=== PATIENT | male | born 2000 | race Caucasian/White ===

== ENCOUNTER 2019-10-06 14:43 | Emergency (ER) | payer MEDICAID, SELFPAY ==
[2019-10-06 14:48] VITALS: BP 140/69; PULSE 86; RESP 16; TEMP 37.1; O2SAT 100
--- NOTE | 2019-10-06 15:10 | W.ED.GENAD ---
Discharge Plan Disposition Patient Disposition: HOME Condition: Improving Discharge Details Chief Complaint: EyeProblem Clinical Impression: Foreign body in cornea, left eye, initial encounter Primary Care Provider: None,None ED Provider: Zander Vital Home Meds and New Rx's Prescriptions: No Action No Known Home Meds RF: 0 Discharge Instructions Instructions: Corneal Abrasion (ED) Additional Instructions: Please use erythromycin ointment 4 times daily for 4 to [address] a 1/4 inch strip in the lower lid as we discussed. Return if you develop increasing pain, change to vision, or any other acute concern. May use Tylenol or ibuprofen as needed for pain. Cool compress to ease discomfort as well as use of sunglasses. Medical Decision Making 19-year-old male presents with left eye foreign body sensation after feeling a small piece of metal enter the eye despite the use of safety glasses while grinding on aluminum. No other injury. He is otherwise been well. Foreign body visualized on slit-lamp examination. Dario sign was negative. The foreign body was removed without difficulty. I will place the patient on erythromycin ointment for 4 to 5 days time. He understands homecare, indications to return, expected course of resolution. HPI General Mode of arrival: ambulatory. Date/Time Provider Initiated Documentation: 10/06/19 14:45. Limitations to Documentation: no limitations. Information obtained by: patient. History of Present Illness 19 year old M presents to the emergency department with the chief complaint of Left eye foreign body, described as moderate, Quality is described as dull and constant, and is localized to the eyes and left. Patient reports no radiation. Patient started experiencing this minute(s) and it has been constant. No relieving factors improve symptom(s), No exacerbating factors reported . Patient notes no other symptoms.. Patient did receive the following treatments prior to arrival, other (Irrigated) Related Data Home Medications Medication Instructions Recorded Confirmed Unknown [No Known Home Meds] 06/21/18 10/06/19 Allergies Allergy/AdvReac Type Severity Reaction Status Date / Time No Known Allergies Allergy Verified 10/06/19 14:51 General Stated Complaint: EyeProblem DELFIN: 5 Review of Systems Narrative: No other injury. Denies other illness. [facility] Medical History Fractured tibia LEFT Surgical History (Updated 02/10/16 @ 12:16 by Henri Page MD) Circumcision Fracture, Closed Treatment Family History Mother No problems noted. Father No problems noted. Social History Smoking/Tobacco Use Status: Never Drug use: Never Exam Narrative Exam Narrative: GEN: awake, alert, oriented 3. Pleasant, well groomed, interactive. HEAD: Normocephalic, atraumatic ENT: Mucous membranes moist, oropharynx unremarkable, External ear exam unremarkable EYES: PERRL, EOMI, the left eye has a punctate foreign body on the nasal aspect medial to the axis of vision and loss along the outer radius of the iris. There is no evidence of Dario sign. NECK: Full ROM, no ROVERTO, no menigismus EXT: Full ROM, no edema, no rash Neuro: Grossly normal neurologic exam, conversant, interactive. Psych: Speech fluent, thoughts congruent, affect normal Course Vital Signs Vital signs: Vital Signs Temperature 37.1 C 10/06/19 14:48 Pulse 86 10/06/19 14:48 Respiratory Rate 16 10/06/19 14:48 Blood Pressure 140/69 10/06/19 14:48 Pulse Oximetry 100 10/06/19 14:48 Temperature 37.1 C 10/06/19 14:48 Temperature Source Skin 10/06/19 14:48 Pulse 86 10/06/19 14:48 Respiratory Rate 16 10/06/19 14:48 Blood Pressure 140/69 10/06/19 14:48 Blood Pressure Position Sitting 10/06/19 14:48 Pulse Oximetry 100 10/06/19 14:48 Oxygen Delivery Method Room Air 10/06/19 14:48 Oxygen Flow Rate 0 10/06/19 14:48 Pain Level 0 10/06/19 14:48 Procedures FB Removal Eye Time Out performed: Yes Location: eye (R) Topical anesthetic used: tetracaine Foreign body: metal Evidence of corneal penetration: No Technique: cotton tip swab and needle Procedure performed under: slit-lamp Post-procedure medication: ophthalmic antibiotic Patient tolerated procedure: well
[2019-10-06] MEDS: Balanced Salt Solution 15 ML BTL OP (15:14)
[2019-10-06] MEDS: Erythromycin Ophth Oint 3.5 GM TUBE OP (15:15)
[2019-10-06] MEDS: Tetracaine 0.5% 4 ML BTL OP (15:15)
[2019-10-06] MEDS: Fluorescein STRIPS 100/BOX 1 MG OP (15:15)
== END 2019-10-06 15:20 | disposition home or self-care (01) ==
PROVIDERS: Emergency Provider Emergency Medicine
DX: T15.02XA Foreign body in cornea, left eye, initial encounter (principal); W26.8XXA Contact with other sharp object(s), not elsewhere classified, initial encounter
CPT/HCPCS: 65222

== ENCOUNTER 2022-02-23 17:01 | Emergency (ER) | payer MEDICAID, SELFPAY ==
[2022-02-23 17:04] VITALS: BP 137/72; PULSE 62; RESP 16; TEMP 36.9; O2SAT 99
--- NOTE | 2022-02-23 17:30 | DI.RAD_ITS ---
Exam(s) XR SHOULDER RT COMPLETE 2+V EXAM: XR SHOULDER RT COMPLETE 2+V CLINICAL HISTORY: shoulder pain. TECHNIQUE: 2D digital imaging was performed. COMPARISON: No exams were available for comparison FINDINGS: Four views: No evidence of fracture or dislocation. No soft tissue calcifications. No degenerative changes. Gl enohumeral and AC joints are intact. No clavicle fracture. No degenerative changes. Bone density n ormal. IMPRESSION: No significant findings. DATA REPOSITORY: RADIATION DOSE DELIVERED:
--- NOTE | 2022-02-23 18:16 | DI.VRAD_ITS ---
PROCEDURE INFORMATION: Exam: XR Right Shoulder Exam date and time: 02/23/2022 5:56 PM Age: 21 years old Clinical indication: Right; Patient HX: Shoulder pain TECHNIQUE: Imaging protocol: Radiologic exam of the Right shoulder. Views: 2 or more views. COMPARISON: No relevant prior studies available. FINDINGS: Bones/joints: No acute fracture or dislocation. Minimal degenerative changes at the acromioclavicular joint Soft tissues: Normal. IMPRESSION: No acute findings. Dictated and Authenticated by: Jens Oneill MD. Ordering:DEWAYNE Guerra MD
--- NOTE | 2022-02-23 18:32 | ED.GENADUL_ITS ---
Discharge Plan Disposition Patient Disposition: HOME Condition: Stable Discharge Details Clinical Impression: Sprain of right shoulder Primary Care Provider: None,None ED Provider: Charlie Cobb Home Meds and New Rx's Prescriptions: No Action No Known Home Meds Discharge Instructions Instructions: Shoulder Sprain (ED), Shoulder Pain (ED) Additional Instructions: You may continue to use [id number] ibuprofen or acetaminophen as directed on packaging for pain control. As discussed please perform gentle range of motion activities of your right shoulder 3-4 times daily. You may also apply ice to help with any further swelling. You may return to work but for 1 week please do not use your right upper extremity and allow for extra rest. For any new or significant worsening of symptoms return to the emergency department for reassessment. Stand Alone Forms: Work Release Referrals: [facility] [Provider Group] (Call their office tomorrow morning for arrangement of your follow-up appointment) Discharge Data Discharge Date/Time-TO BE ENTERED AT DEPARTURE: 02/23/22 18:50 Medical Decision Making Patient presenting the emergency department for chief complaint of right shoulder injury. 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 He does state that when he attempts to raise his arm overhead he feels popping and clicking. Patient denies any other injury or trauma. Physical exam shows tenderness to the anterior aspects of the shoulder capsule with significant pain after patient attempts to go any higher than 90 degrees mainly in the forward and lateral extension positions. We will perform radiological imaging and give pain medication pending results. Review of radiological imaging and radiologist interpretation shows no acute findings. I do suspect ligamentous injury with possible tear. Will place patient in sling and recommend ice and range of motion activities over the next week and put patient on follow-up list for orthopedic reassessment. After discussion of diagnosis and plan of care patient has no further needs, questions, or concerns and states clear understanding to return to the emergency department for any worsening symptoms. HPI General Mode of arrival: ambulatory . Date/Time Provider Initiated Documentation: 02/23/22 17:21 . Limitations to Documentation: no limitations . Information obtained by: patient and RN notes reviewed . History of Present Illness 21 year old M presents to the emergency department with the chief complaint of right shoulder injury, described as moderate, with intensity rated at 7. Quality is described as sharp, and is localized to the right and upper extremity. Patient distal. Patient started experiencing this hour(s) (2) and it has been constant. Immobilization improves symptom(s), Movement worsens symptoms . Patient notes no other symptoms.. Patient did receive the following treatments prior to arrival, none Related Data Home Medications Medication Instructions Recorded Confirmed Unknown [No Known Home Meds] 06/21/18 02/23/22 Allergies Allergy/AdvReac Type Severity Reaction Status Date / Time No Known Allergies Allergy Verified 02/23/22 17:08 General Stated Complaint: Orthopedic DELFIN: 4 Review of Systems Narrative: 6 systems reviewed and unremarkable except what is marked below. ENT Ears, Nose, Mouth, and Throat: Denies neck pain Musculoskeletal Musculoskeletal: Reports as per HPI, Denies back pain, Reports arthralgias, Reports limited range of motion, Denies muscle weakness, Denies neck pain, Denies numbness and Denies tingling Neurologic Neurologic: Denies numbness and Denies tingling PFSH All Active Problems (Updated 02/23/22 @ 18:37 by Charlie Cobb NP) Sprain of right shoulder (Acute) Medical History (Updated 02/23/22 @ 18:37 by Charlie Cobb NP) Fractured tibia LEFT Surgical History (Updated 02/10/16 @ 12:16 by Henri Page MD) Circumcision Fracture, Closed Treatment Family History Mother No problems noted. Father No problems noted. Social History Smoking/Tobacco Use Status: Current every day Tobacco Type: e-cigarettes Smoking risk assessment performed?: Yes Alcohol Intake: current Drug use: Never Substance use type: marijuana Do you feel safe at home: Yes Do you feel safe in your relationship?: Yes Exam Const General: cooperative, no acute distress and not ill appearing Orientation: alert, awake and oriented x3 Resp Effort & Inspection: normal respiratory effort, able to speak in complete sentences and no respiratory distress Cardio Rate: regular rate Rhythm: regular rhythm Pulses: normal peripheral pulses Skin General skin exam: no rashes or lesions noted Neuro General: patient alert, patient awake, patient oriented x3, moves all extremities and no focal motor deficits Sensory Exam: no sensory deficits noted Extrem General: normal exam except as noted Right upper extremity: shoulder/upper arm Details: tenderness Location: over the subacromial bursa and over the deltoid bursa, axillary nerve sensory function normal and abnormal ROM Details: pain with active ROM Details: in extension and in internal rotation, pain with passive ROM Details: with extension and with internal rotation and with range as follows; no swelling, no ecchymosis and no crepitus Course Vital Signs Vital signs: Vital Signs Temperature 36.9 C 02/23/22 17:04 Pulse 62 02/23/22 17:04 Respiratory Rate 16 02/23/22 17:04 Blood Pressure 137/72 02/23/22 17:04 Pulse Oximetry 99 02/23/22 17:04 Temperature 36.9 C 02/23/22 17:04 Pulse 62 02/23/22 17:04 Respiratory Rate 16 02/23/22 17:04 Respiratory Effort 02/23/22 17:08 Blood Pressure 137/72 02/23/22 17:04 Pulse Oximetry 99 02/23/22 17:04 Pain Level 4 02/23/22 17:08
[2022-02-23 18:47] VITALS: BP 137/72; PULSE 62; RESP 16; TEMP 36.9; O2SAT 99
== END 2022-02-23 18:50 | disposition home or self-care (01) ==
PROVIDERS: Emergency Provider Nurse Practitioner Family
DX: S43.401A Unspecified sprain of right shoulder joint, initial encounter (principal); F17.290 Nicotine dependence, other tobacco product, uncomplicated; X50.0XXA Overexertion from strenuous movement or load, initial encounter
CPT/HCPCS: 99283; 73030; 99284

== ENCOUNTER 2022-05-05 16:53 | Emergency (ER) | payer MEDICAID, SELFPAY ==
[2022-05-05 16:56] VITALS: BP 132/61; PULSE 73; RESP 16; TEMP 36.8; O2SAT 98
[2022-05-05] MEDS: Fluorescein STRIPS 100/BOX 1 MG OP (17:08)
[2022-05-05] MEDS: Balanced Salt Solution 15 ML BTL OP (17:08)
[2022-05-05] MEDS: Erythromycin Ophth Oint 3.5 GM TUBE OP (17:09)
[2022-05-05] MEDS: Tetracaine 0.5% 4 ML BTL OP (17:10)
--- NOTE | 2022-05-05 18:32 | W.ED.GENAD ---
Discharge Plan Disposition Patient Disposition: Home Condition: Stable Discharge Details Clinical Impression: Acute foreign body of left eye Primary Care Provider: None,None ED Provider: Charlie Cobb Home Meds and New Rx's Prescriptions: No Action No Known Home Meds Discharge Instructions Instructions: Eye Foreign Body (ED) Additional Instructions: Please take the erythromycin ointment and use a half an inch applied to your left lower eyelid 4-5 times daily for the next 5 days or until you see ophthalmology with further recommendation. You may use [id number] Motrin or acetaminophen as needed for discomfort and return immediately to the emergency department for any new or worsening of your symptoms. Stand Alone Forms: Work Release Referrals: [facility] [Outside] - 2 days Discharge Data Discharge Date/Time-TO BE ENTERED AT DEPARTURE: 05/05/22 18:46 Medical Decision Making Patient presenting to the emergency department for chief complaint of foreign body in left eye. Patient states he was working underneath a car yesterday evening and was wearing safety glasses and denies any injury or trauma but later that evening noted some irritation to his left eye. Patient denies any other symptoms. Visual acuity is appropriate and exam is otherwise unremarkable except for an noted visible foreign body in the 5 o'clock position. Moistened Q-tip was utilized to remove part of foreign body but there does appear to either be remained a small aspect of metal still or rust ring. Patient is not able to keep still enough to try an 18-gauge needle. I will place patient on erythromycin ointment and have patient follow-up with ophthalmology on Tuesday. Did discuss with patient return and follow-up precautions for any new or worsening symptoms after discussion of diagnosis and plan of care patient has no further needs, questions, or concerns and states clear understanding to return to the emergency department for any worsening symptoms. This documentation was generated using Dayjetation system, please disregard any oddities of phrase or misspellings. Sign Out No HPI General Mode of arrival: ambulatory. Date/Time Provider Initiated Documentation: 05/05/22 17:02. Limitations to Documentation: no limitations. Information obtained by: patient and RN notes reviewed. History of Present Illness 22 year old M presents to the emergency department with the chief complaint of left eye injury, described as mild, with intensity rated at 1. Quality is described as aching, and is localized to the eyes and left. Patient started experiencing this day(s) (1) and it has been constant. No relieving factors improve symptom(s), No exacerbating factors reported . Patient notes no other symptoms.. Patient did receive the following treatments prior to arrival, none Related Data Home Medications Medication Instructions Recorded Confirmed Unknown [No Known Home Meds] 06/21/18 05/05/22 Allergies Allergy/AdvReac Type Severity Reaction Status Date / Time No Known Allergies Allergy Verified 05/05/22 16:59 General Stated Complaint: EyeProblem DELFIN: 4 Review of Systems Narrative: 6 systems reviewed and unremarkable except what is marked below. Eyes Eyes: Reports as per HPI, Denies change in vision, Reports irritation, Denies loss of vision, Reports eye pain and Reports photophobia Neurologic Neurologic: Denies loss of vision PFSH All Active Problems Acute foreign body of left eye (Acute) No-show for appointment (Acute) Strain of long head of right biceps (Acute 02/23/22) Medical History Fractured tibia LEFT Surgical History Circumcision Fracture, Closed Treatment Family History Mother No problems noted. Father No problems noted. Social History Smoking/Tobacco Use Status: Current every day Tobacco Type: e-cigarettes Smoking risk assessment performed?: Yes Alcohol Intake: current Drug use: Daily Substance use type: marijuana Current gender identity: male Do you feel safe at home: Yes Do you feel safe in your relationship?: Yes Exam Const General: cooperative, no acute distress and not ill appearing Orientation: alert, awake and oriented x3 HENMT Head: normal to inspection, normocephalic and atraumatic Eyes Visual Serrato: normal visual serrato by confrontation Alignment and Position: alignment normal and position normal Periorbital: periorbital findings normal Eyelids: eyelids normal Conjunctivae: conjunctivae normal Sclera: sclerae normal Cornea: corneas abnormal on the left fluorescein used and foreign body metallic and with rust ring present and fluorescein used Pupils: PERRL, normal by confrontation and accommodation normal EOM: EOM intact bilaterally Resp Effort & Inspection: normal respiratory effort, able to speak in complete sentences and no respiratory distress Skin General skin exam: no rashes or lesions noted Neuro General: patient alert, patient awake, patient oriented x3, moves all extremities and no focal motor deficits Sensory Exam: no sensory deficits noted Course Vital Signs Vital signs: Vital Signs Temperature 36.8 C 05/05/22 16:56 Pulse 73 05/05/22 16:56 Respiratory Rate 16 05/05/22 16:56 Blood Pressure 132/61 05/05/22 16:56 Pulse Oximetry 98 05/05/22 16:56 Temperature 36.8 C 05/05/22 16:56 Temperature Source Temporal Artery Scan 05/05/22 16:56 Pulse 73 05/05/22 16:56 Respiratory Rate 16 05/05/22 16:56 Respiratory Effort Non-Labored 05/05/22 16:58 Blood Pressure 132/61 05/05/22 16:56 Blood Pressure Position Sitting 05/05/22 16:56 Pulse Oximetry 98 05/05/22 16:56 Oxygen Delivery Method Room Air 05/05/22 16:56 Oxygen Flow Rate 0 05/05/22 16:56 Pain Level 1 05/05/22 16:56 PAWSS Have you Been Recently Intoxicated or Drunk Within the Last 30 days?: No Have you Ever Experienced Previous Episodes of Alcohol Withdrawal?: No Have you ever Experienced Withdrawal Seizures?: No Have you ever Experienced Delirium Tremens(DT)s?: No Have you ever undergone Alcohol Rehabilitation Treatment (i.e, inpt ot outpatient treatment programs)?: No Have you ever Experienced Blackouts?: No Have you ever Combined Alcohol with other Downers within the last 90 days?: No Result: 0
--- NOTE | 2022-05-06 09:34 | NUR.NOTE ---
Nursing Note REFFERAL TO [facility]. NEEDS TO BE SEEN TUESDAY:
== END 2022-05-05 18:46 | disposition home or self-care (01) ==
PROVIDERS: Emergency Provider Nurse Practitioner Family
DX: T15.92XA Foreign body on external eye, part unspecified, left eye, initial encounter (principal); F17.290 Nicotine dependence, other tobacco product, uncomplicated; X58.XXXA Exposure to other specified factors, initial encounter
CPT/HCPCS: 99283; 99284

== ENCOUNTER 2022-12-14 21:12 | Emergency (ER) | payer MEDICAID, SELFPAY ==
[2022-12-14 21:14] VITALS: BP 120/60; PULSE 70; RESP 16; TEMP 36.7; O2SAT 99
--- NOTE | 2022-12-14 23:17 | ED.GENADUL_ITS ---
Discharge Plan Disposition Patient Disposition: Home Condition: Stable Discharge Details Clinical Impression: Cerumen impaction Primary Care Provider: None,None ED Provider: Christiano Beckham Home Meds and New Rx's Prescriptions: No Action No Known Home Meds Discharge Instructions Additional Instructions: You can use over the counter ear drops to help prevent this from happening again follow up with your primary care provider as needed if you feel more ill, have severe worsening pain or fevers return to the emergency department Medical Decision Making 22 yo male with no chronic medical problems comes in with fullness sensation in his left ear today, no fevers, no drainage, denies trauma. Arrives stable and ap pears well, does have cerumen impaction on the left, normal right TM. Will have nursing irrigate the left ear. pt had large cerumen impacation irrigated out and has normal tm and ext aud canal, stable for d/c Differential Diagnosis Differential Diagnosis: impaction, otitis media HPI General Mode of arrival: ambulatory . Date/Time Provider Initiated Documentation: 12/14/22 21:20 . Limitations to Documentation: no limitations . Information obtained by: patient . History of Present Illness 22 year old M presents to the emergency department with the chief complaint of left ear fullness, described as moderate, Patient started experiencing this day(s) (1) and it has been constant. No relieving factors improve symptom(s), No exacerbating factors reported . Patient notes no other symptoms.. Related Data Home Medications Medication Instructions Recorded Confirmed Unknown [No Known Home Meds] 06/21/18 05/05/22 Allergies Allergy/AdvReac Type Severity Reaction Status Date / Time No Known Allergies Allergy Verified 05/05/22 16:59 General Stated Complaint: EarProblem DELFIN: 4 Review of Systems All systems reviewed & are unremarkable except as noted in HPI and below Constitutional Constitutional: Denies chills, Denies fever(s) and Denies weakness Cardiovascular Cardiovascular: Denies chest pain and Denies dyspnea Respiratory Respiratory: Denies cough and Denies dyspnea Gastrointestinal Gastrointestinal: Denies abdominal pain, Denies nausea and Denies vomiting Musculoskeletal Musculoskeletal: Denies joint swelling Neurologic Neurologic: Denies weakness PFSH All Active Problems (Updated 12/14/22 @ 23:19 by Christiano Beckham MD) Cerumen impaction (Acute) No-show for appointment (Acute) Strain of long head of right biceps (Acute 02/23/22) Medical History Fractured tibia LEFT Surgical History Circumcision Fracture, Closed Treatment Family History Mother No problems noted. Father No problems noted. Social History Smoking/Tobacco Use Status: Current every day Tobacco Type: e-cigarettes Smoking risk assessment performed?: Yes Alcohol Intake: current Drug use: Daily Substance use type: marijuana Housing: apartment Current gender identity: male Do you feel safe at home: Yes Do you feel safe in your relationship?: Yes Exam Const General: no acute distress Orientation: alert HENMT Head: normal to inspection Ears: external ears normal General nose exam: external nose normal Mouth: moist mucous membranes Eyes General: appearance normal, both eyes and all related structures Neck Neck: normal visual inspection Resp Effort & Inspection: normal respiratory effort and able to speak in complete sentences Cardio Rate: regular rate Skin General skin exam: no rashes or lesions noted Neuro General: patient alert and patient oriented x3 Extrem General: normal to inspection Psych Mental Status: mental status grossly normal Course Vital Signs Vital signs: Vital Signs Temperature 36.7 C 12/14/22 21:14 Pulse 70 12/14/22 21:14 Respiratory Rate 16 12/14/22 21:14 Blood Pressure 120/60 12/14/22 21:14 Pulse Oximetry 99 12/14/22 21:14 Temperature 36.7 C 12/14/22 21:14 Temperature Source Temporal Artery Scan 12/14/22 21:14 Pulse 70 12/14/22 21:14 Respiratory Rate 16 12/14/22 21:14 Respiratory Effort Normal, Non-Labored 12/14/22 21:16 Blood Pressure 120/60 12/14/22 21:14 Blood Pressure Position Sitting 12/14/22 21:14 Pulse Oximetry 99 12/14/22 21:14 Oxygen Delivery Method Room Air 12/14/22 21:14 Oxygen Flow Rate 0 12/14/22 21:14 Pain Level 0 12/14/22 21:14
[2022-12-14] MEDS: Hydrogen Peroxide 3% 480 ML BTL (23:20)
[2022-12-14 23:49] VITALS: BP 122/69; PULSE 72; RESP 16; O2SAT 99
== END 2022-12-14 23:49 | disposition home or self-care (01) ==
PROVIDERS: Emergency Provider Emergency Medicine
DX: H61.22 Impacted cerumen, left ear (principal); F17.290 Nicotine dependence, other tobacco product, uncomplicated
CPT/HCPCS: 69209; 99282

== ENCOUNTER 2023-01-23 17:21 | Emergency (ER) | payer MEDICAID, SELFPAY ==
[2023-01-23 17:23] VITALS: BP 135/87; PULSE 76; RESP 18; TEMP 37.1; O2SAT 100
--- NOTE | 2023-01-23 17:28 | DI.RAD_ITS ---
Exam(s) XR SHOULDER RT COMPLETE 2+V EXAM: XR SHOULDER RT COMPLETE 2+V CLINICAL HISTORY: shoulder reduction. TECHNIQUE: 2D digital imaging was performed. COMPARISON: CR,XR XR SHOULDER RT COMPLETE 2+V from 02/23/2022 FINDINGS: 3 views No evidence of fracture nor dislocation nor abnormal soft tissue calcifications. Subacromial space i s not diminished. No degenerative changes in the glenohumeral joint. Mild degenerative changes in t he AC joint. Clavicle appears intact. No osseous lesions. IMPRESSION: No fracture or dislocation. DATA REPOSITORY: RADIATION DOSE DELIVERED:
[2023-01-23] MEDS: Ketorolac 30 MG/ML VIAL IM (17:34)
--- NOTE | 2023-01-23 17:34 | ED.GENADUL_ITS ---
Discharge Plan Disposition Patient Disposition: Home Discharge Details Clinical Impression: Anterior shoulder dislocation Primary Care Provider: None,None ED Provider: Carlos Larson Home Meds and New Rx's Prescriptions: No Action No Known Home Meds Discharge Instructions Additional Instructions: Please apply ice pack to the right shoulder 20 minutes every hour while awake. You may take Tylenol 1 g every 6 hours for the pain as well as ibuprofen 400 mg every 6 hours for the pain. Do not remove the sling. You will be called for an appointment with the orthopedist office this week. Stand Alone Forms: Work Release Medical Decision Making 22-year-old presents to the emergency department following a shoulder d islocation on the right. On initial evaluation patient appeared very uncomfortable. I was able to sit him on the stretcher and explained to him that I was going to reduce the shoulder immediately since he had just happened. His neurovascular examination prior to the reduction was intact. With some mild traction and external rotation the shoulder was easily reduced. Patient was placed in a sling and postreduction films confirmed adequate reduction. Treatment plan discussed with the patient. HPI General Date/Time Provider Initiated Documentation: 01/23/23 17:23 . HPI Narrative: 22-year-old complaining of right shoulder pain. Presents to the emergency department stating he is unable to lift shoulder since the sling at the second PCP refill left onto his right shoulder. States there is an obvious deformity of the right shoulder. Holding his arm immobile against him unable to move the right arm. Isolated injury to the right shoulder. No head trauma. Related Data Home Medications Medication Instructions Recorded Confirmed Unknown [No Known Home Meds] 06/21/18 01/23/23 Allergies Allergy/AdvReac Type Severity Reaction Status Date / Time No Known Allergies Allergy Verified 01/23/23 17:32 General Stated Complaint: Orthopedic DELFIN: 3 Review of Systems Narrative: 10 point review of system is negative unless otherwise stated in the HPI PFSH All Active Problems (Updated 01/23/23 @ 17:54 by Carlos Larson MD) Anterior shoulder dislocation (Acute) No-show for appointment (Acute) Strain of long head of right biceps (Acute 02/23/22) Medical History Fractured tibia LEFT Surgical History Circumcision Fracture, Closed Treatment Family History Mother No problems noted. Father No problems noted. Social History Smoking/Tobacco Use Status: Current every day Tobacco Type: e-cigarettes Smoking risk assessment performed?: Yes Alcohol Intake: current Drug use: Daily Substance use type: marijuana Housing: apartment Current gender identity: male Do you feel safe at home: Yes Do you feel safe in your relationship?: Yes Exam Narrative Exam Narrative: General: A,A Ox3, Calm, no apparent distress, well developed, pleasant and cooperative Head Size/Shape: normocephalic, atraumatic Eyes Pupils: PERRLA Extraocular Mobility: intact and symmetrical Conjunctiva: non-injected, anicteric, no discharge Ears, Nose, Throat Nares: patent bilaterally Oral Cavity: moist Neck: ssupple, no tenderness Respiratory Respiratory Effort: no dyspnea Cardiovascular Pulse Quality: +2 equal bilaterally, location(s) radial Musculoskeletal System Joints, Bones, and Muscles: Right shoulder deformity consistent with dislocated right shoulder anteriorly. Extremities: warm and well-perfused, no cyanosis, capillary refill <2 seconds Skin Skin Inspection: no rash, no lesions, no bruising Neurological Motor: normal tone, normal strength, moving all extremities equally Psychiatric: good insight, good judgement, normal mood and affect Course Vital Signs Vital signs: Vital Signs Temperature 37.1 C 01/23/23 17:23 Pulse 76 01/23/23 17:23 Respiratory Rate 18 01/23/23 17:23 Blood Pressure 135/87 01/23/23 17:23 Pulse Oximetry 100 01/23/23 17:23 Temperature 37.1 C 01/23/23 17:23 Temperature Source Skin 01/23/23 17:23 Pulse 76 01/23/23 17:23 Respiratory Rate 18 01/23/23 17:23 Blood Pressure 135/87 01/23/23 17:23 Blood Pressure Position Sitting 01/23/23 17:23 Pulse Oximetry 100 01/23/23 17:23 Oxygen Delivery Method Room Air 01/23/23 17:23 Oxygen Flow Rate 0 01/23/23 17:23 Pain Level 10 01/23/23 17:23 Procedures Orthopedic Joint Reduction Joint #1: Time Out Performed: Yes Side: right Joint Reduction Location: shoulder Analgesia: none Shoulder Technique Used (if applicable): external rotation Post-reduction neuro exam: intact Post-reduction vascular: intact Post Reduction X-Ray Obtained: Yes Post Reduction X-Ray Results: reduced Additional Comments: sling applied
[2023-01-23 18:05] VITALS: BP 112/71; PULSE 82; RESP 14; TEMP 37.2; O2SAT 95
--- NOTE | 2023-01-23 18:09 | DI.VRAD_ITS ---
PROCEDURE INFORMATION: Exam: XR Right Shoulder Exam date and time: 01/23/2023 17:42 Age: 22 years old Clinical indication: Other: Shoulder reduction TECHNIQUE: Imaging protocol: Radiologic exam of the right shoulder. Views: 2 or more views. COMPARISON: CR XR SHOULDER RT COMPLETE 2+V 02/23/2022 17:56 FINDINGS: Bones/joints: Normal right glenohumeral alignment. Mild acromioclavicular degenerative changes. No acute fracture or subluxation. Soft tissues: Normal. IMPRESSION: Normal right glenohumeral alignment. Dictated and Authenticated by: Lenore Mckeon MD. Ordering:DENI Gonzalez MD
== END 2023-01-23 18:08 | disposition home or self-care (01) ==
PROVIDERS: Emergency Provider Emergency Medicine
DX: S43.084A Other dislocation of right shoulder joint, initial encounter (principal); W18.39XA Other fall on same level, initial encounter; Y93.64 Activity, baseball; Y92.89 Other specified places as the place of occurrence of the external cause; Y99.9 Unspecified external cause status
CPT/HCPCS: 99283; 73030; J1885

== ENCOUNTER → 2023-02-01 13:31 | Outpatient (CLI) | payer MEDICAID, SELFPAY ==
--- NOTE | 2023-02-01 11:45 | DI.MRI_ITS ---
Exam(s) MR UPPER JOINT RT WO EXAM: MR UPPER JOINT RT WO CLINICAL HISTORY: ? RTC TEAR, ? SLAP TEAR, anterior shoulder dislocation, S43.016A. TECHNIQUE: Multiplanar multisequence MRI was performed. COMPARISON: CR,XR XR SHOULDER RT COMPLETE 2+V from 01/23/2023 FINDINGS: BONES: There is a Hill-Sachs deformity with marrow contusion involving the posterolateral humeral hea d. JOINTS: There is edema seen in the acromion which may represent a contusion. No fracture is identifi ed. The glenohumeral joint is normal. There is a moderate joint effusion. TENDONS: Supraspinatus: Unremarkable. Infraspinatus: Unremarkable. Subscapularis: Unremarkable. [place]: Unremarkable. Biceps and [place]: Unremarkable. MUSCLES: Unremarkable. GLENOID LABRUM: Please see below under ligaments. SOFT TISSUES: Please see below under ligaments. LIGAMENTS: There is hyperintense signal seen on the T2 weighted images at the attachment of the infer ior glenohumeral ligament complex on to the glenoid. There does appear to be a tear of the anterior inferior glenoid labrum. The bone appears intact. OTHER: Subacromial and subdeltoid bursae are unremarkable. IMPRESSION: 1. Sequelae of a prior anterior shoulder dislocation with a Hill-Sachs deformity in the humeral head. 2. Findings suspicious for tear of the anterior inferior glenohumeral ligament complex from its inser tion onto the glenoid. There also appears to be a tear of the anterior inferior glenoid labrum. No osseous Bankart is seen. 3. There is no evidence of a rotator cuff tear. 4. Moderate joint effusion. DATA REPOSITORY:
== END ==
PROVIDERS: Visit Provider Student in an Organized Health Care Education/Training Program
DX: S43.431A Superior glenoid labrum lesion of right shoulder, initial encounter (principal); X58.XXXA Exposure to other specified factors, initial encounter
CPT/HCPCS: 73221

== ENCOUNTER 2023-02-18 06:23 | Day surgery (SDC) | payer MEDICAID, SELFPAY ==
[2023-02-18] VITALS (12 sets, daily range): BP systolic 97–168; BP diastolic 51–79; PULSE 48–60; RESP 11–18; TEMP 36.2–36.7; O2SAT 95–99; BMI 22.1
--- NOTE | 2023-02-18 06:44 | W.ANESPRE ---
General Info Date of Service Date Performed: 02/18/23 Height: 5 ft 11 in Weight: 72.1 kg Body Mass Index (BMI): 22.1 Surgical Procedure: Operation Date: 02/18/23 07:40 Proposed Procedure Side Surgeon p Shoulder Arthroscopy w/Labral Repair/Stabilization Right Riley Morocho MD Meds Allergies and Home Medications Allergies Allergy/AdvReac Type Severity Reaction Status Date / Time No Known Allergies Allergy Verified 02/18/23 06:31 Home Medication Medication Instructions Recorded aspirin 81 mg tablet,delayed 81 mg PO DAILY prevent blood clot 02/18/23 release 7 days #7 tabs naproxen 250 mg tablet 250 - 500 mg PO BID PRN #40 tabs 02/18/23 tramadol 50 mg tablet 50 mg PO Q6H PRN severe pain #5 02/18/23 tabs Current Visit Medications: Current Medications Generic Name Dose Route Start Last Admin Trade Name Freq PRN Reason Stop Dose Admin Ringer's Solution 1,000 mls @ 30 mls/hr 02/18/23 06:00 IV 03/19/23 23:59 INFUSION JUDY Cefazolin Sodium/Dextrose 2 gm in 50 mls @ 100 mls/hr 02/18/23 06:00 Ancef Duplex IVPB 02/18/23 16:00 PREOP JUDY IV Miscellaneous Supplies 1 each 02/18/23 06:00 Iv Access IV 03/19/23 23:59 DIRECTED JUDY Sodium Chloride 0 ml 02/18/23 06:00 Normal Saline Flush 10 Ml Syr IV 03/19/23 23:59 PRN PRN Sodium Chloride 0 ml 02/18/23 06:00 Normal Saline 10 Ml Vial IJ 03/19/23 23:59 DIRECTED PRN Sterile Water 0 ml 02/18/23 06:00 Water,Injection,Sterile 10 Ml Vial IJ 03/19/23 23:59 DIRECTED PRN PFSH Active Problems Active Problems: Problem Status Onset Code Instability of right shoulder joint M25.311 Medical History Medical History Anterior shoulder dislocation (~01/23/23) Fractured tibia LEFT No-show for appointment Strain of long head of right biceps (02/23/22) Surgical History Surgical History Circumcision Fracture, Closed Treatment Tobacco Smoking/Tobacco Use Status: Current every day Tobacco Type: e-cigarettes Alcohol Alcohol Intake: current Alcohol intake frequency: a few times a month Substance Use Substance use: Daily Substance use type: marijuana Vital Signs and Lab Results Vital Signs Most Recent Vital Signs in EMR: Most Recent Vital Signs Temp Pulse Resp BP Pulse Ox 36.6 C 60 16 110/75 97 02/18/23 06:32 02/18/23 06:32 02/18/23 06:32 02/18/23 06:32 02/18/23 06:32 Lab Results Blood Type / Crossmatch: No Data to Display Complete Blood Count: No Data to Display Complete Metabolic Panel: No Data to Display Liver Function Panel: No Data to Display Coagulation Panel: No Data to Display Cardiac Panel: No Data to Display Arterial Blood Gas: No Data to Display Venous Blood Gas: No Data to Display Pancreas Panel: No Data to Display Thyroid Panel: No Data to Display Infectious Disease: No Data to Display Blood Cultures: No Data to Display Toxicology Panel: No Data to Display Anesthesia Assessment and Plan Anesthesia History Personal History: No History of Anesthesia Complications Family History: No Family History of Anesthesia Complications Exercise Tolerance Exercise Tolerance: Metabolic Equivalents>4 Pertinent Negatives Pertinent Negatives: No Symptoms of GERD Cardiac & Pulmonary Exam Cardiac Exam: Normal S1/S2 Heart Sounds Pulmonary Exam: Clear Bilateral Breath Sounds Implantable Cardiac Device Does patient have a Pacemaker or an ICD?: No Airway Exam Known Difficult Airway: No Mallampati Class: 2 Mouth Opening: Normal (> 3cm) Thyromental Distance: Greater than 3 cm Neck Range of Motion: Full ROM Neck Circumference: Normal Teeth Condition: Normal Dentition ASA Classification ASA Score: ASA 2 Emergency Case?: No NPO Status NPO Status: NPO Clears >2 hours, Solids >8 hours Anesthesia Plan Resuscitation Status: Full Code Anesthesia Technique: General Anesthesia Airway Planned: Endotracheal Tube Pain Management: Surgeon and patient request nerve block Monitors Used: Standard Monitors
--- NOTE | 2023-02-18 07:03 | W.PM.DSUDISC ---
Date of service: 02/18/23 Time of Service: 13:00 Discharge Plan Disposition Patient Disposition: Home Condition: Stable Discharge Details Attending Provider: Riley Morocho Primary Care Provider: None,None Home Meds and New Rx's Prescriptions: New aspirin 81 mg tablet,delayed release (DR/EC) 81 mg PO DAILY 7 Days Qty: 7 0RF naproxen 250 mg tablet 250 - 500 mg PO BID PRNQty: 40 0RF Rx Instructions: take with a meal tramadol 50 mg tablet 50 mg PO Q6H PRN (Reason: severe pain) Qty: 5 0RF Discontinued ibuprofen [Advil] 200 mg tablet 600 mg PO Q6H PRN Discharge Instructions Additional Instructions: Surgery: Right shoulder arthroscopy with labral repair/stabilization, SLAP repair, and extensive debridement including humeral head microfracture Activity: For 6 weeks, you should keep your arm at your side in a neutral position at all times except for physical therapy. Do not try to lift or raise your arm using your own muscles. You should use the sling whenever you are out of the house. You may have to adjust the abduction pillow or remove it for comfort. At home it is best to remove the sling and rest the arm on a pillow at your side or support the operative side with your other hand. You may allow the arm to dangle at your side. A physical therapy prescription will be sent electronically to begin in about 3 weeks. Postoperative protocol/ ROM restrictions: Weeks 0-3: 0 degrees external rotation Weeks 3-6: Maximum 30 degrees external rotation and 90 degrees forward elevation Weeks 6-8: Maximum 45 degrees external rotation and 120 degrees forward elevation Weeks 8+: Advance to full range of motion Weeks 10-12+: Start light rotator cuff strengthening and dynamic scapular stabilization Prescriptions: Aspirin 81 mg take 1 daily to prevent a blood clot for 7 days Naproxen 250 mg take 1-2 every 12 hours with a meal as needed for moderate pain Tramadol 50 mg take 1 every 6-8 hours as needed for severe pain You may use [id number] Tylenol (acetaminophen) as needed for mild pain. These pain medications may be taken all at once or in different combinations as needed. Also, recommend Colace (docusate) as a stool softener as surgery and pain medicine cause constipation. You may try [id number]-wyrobjy diphenhydramine (Benadryl) 25-50 mg nightly as a sleep aid Dressings: Remove shoulder bandage after 3 days. Leave the sticky Steri-Strips in place until they fall off or remove them after you shower. Cover the incisions with Band-Aids or leave them open to air. You may shower after 5 days. Follow-up: 10-[address] Morocho You may take off the leg compression stockings this evening at home. You may also leave them on a few days longer if you have a history of leg swelling or edema. Let us know right away if you develop any redness, drainage, fevers, chest pain, or trouble breathing. Do not drink alcohol or drive for at least 24 hours after anesthesia. Please call the office during business hours with any questions or concerns. Discharge Orders Discharge Orders: Discharge Order (Routine); Ordered 02/18/23 Ordered By: Riley Morocho DS: Diagnosis Discharge Diagnosis (1) Instability of right shoulder joint: Status: Acute
[2023-02-18] MEDS: Lactated Ringers 1,000 ML 30 ML IV (07:07)
--- NOTE | 2023-02-18 07:07 | ROE_ITS ---
Date of service: 02/18/23 Time of Service: 07:30 Operative Note Operative Note DATE OF PROCEDURE: 02/18/23 PRE-OP DIAGNOSIS: Right: 1. Labral tear/ instability 2. SLAP tear POST-OP DIAGNOSIS: same Right: 1. labral tear/ instability 2. SLAP tear 3. Loose body 4. Humeral head cartilage lesion PROCEDURE: Right: 1. Arthroscopic labral repair/ stabilization, CPT #72308: This involved capsulolabral ligamentous repair of Bankart lesion using suture and anchors 2. Arthroscopic SLAP repair, CPT# 53210: This involved repair of the anterior portion of the superior labrum biceps anchor using anchors and suture 3. Extensive debridement, CPT# 67844. This involved using arthroscopic hand instruments to remove a moderately sized chondral loose body in the anterior recess, mechanical shaver to remove a number of smaller chondral labral debris also from the axillary and anterior recess, debrided synovitis and early adhesions about the subscapularis, and use a small K wire to perform a humeral head microfracture of a cartilage lesion The environmental emergencies assistant was medically required in order to help assist in techniques above, which require positioning the arm, holding the arthroscope, and manipulating multiple instruments and sutures at the same time. This cannot be done without the help of an experienced environmental emergencies assistant. SURGEON: Riley Morocho AUTOMOTIVE PARTS COORDINATOR: Yvette Rae ANESTHESIA TYPE: Local By Surgeon, General LMA/ETT and Primary Nerve Block Refer to Anesthesia Record ESTIMATED BLOOD LOSS: 10 PATHOLOGY: none sent COMPLICATIONS: None Patient was transported to: PACU Patient's condition: stable Implants: Arthrex: 2.9mm biocomposite PushLock anchor x4 Indications: The patient was diagnosed with the above conditions and appropriately indicated for surgical intervention. Please see complete medical record for details. Findings: Exam under anesthesia: Full marriage of motion without significant instability anterior or posterior Glenohumeral joint: Obvious Bankart injury from dislocation involving complete detachment although relatively nondisplaced of the entire anterior labrum starting from the anterior 50% of the superior labrum under the biceps anchor, SLAP tear, continuing down the anterior labrum and stopping at about 530 o'clock. Good labral tissue quality. No significant bone or cartilage loss anteriorly or inferiorly. Isolated posterior humeral head relatively small but full-thickness cartilage lesion about 4 x 8 mm with the corresponding loose body found and removed from the anterior recess. Intact subscapularis, intact biceps tendon with moderate injection about the bicipital groove, intact supraspinatus and infraspinatus. No posterior labral tearing. Procedure Description: In the operating room, general anesthesia was induced. Bilateral shoulders were examined. The patient was positioned in the beachchair position. All bony prominences were well-padded. Preoperative antibiotics were administered. The shoulder was prepped and draped in the usual sterile fashion. The correct patient, procedure, and side of the procedure were all verified prior to incision. Starting through the posterior portal a standard complete diagnostic arthroscopy was performed of the glenohumeral joint including inspection of the long head of the biceps, anterior and superior labrum, subscapularis tendon, supraspinatus and infraspinatus tendons, and axillary recess. The usual high anterior rotator interval portal and lower to anterior inferior portals were established using spinal needle localization targeting the planned SLAP repair and Bankart repairs with the lower portal established just superior to the subscapularis with appropriate excursion to reach low on the glenoid face with good trajectory. The glenoid and humeral head cartilage as well as the posterior labrum were inspected from an anterior viewing portal. Significant findings and interventions noted above including the described loose body removal, removal of smaller debris and synovitis, and resection of an early adhesion between the anterior displaced labral tissue and the subscapularis. The biceps was probed and relatively stable with intact tendon although mildly injected in the bicipital groove. The anterior portion of the biceps anchor about 50% from the midline of the superior labrum was detached and unstable to the superior glenoid margin as a separate SLAP tear. There appeared to be a relatively normal small anterior superior labral recess and then the majority of the anterior through anterior inferior labrum was detached. There is probably a Air[place] type variant without a clear separate visualized [facility] however the anterior labrum was clearly labral tissue and not a cordlike structure and clearly had an Vitas along the glenoid margin with the glenoid showing tissue disruption injury from anterior to anterior-inferior. The anterior labrum did thin about this anterior superior small recess before the superior labrum and SLAP tear were encountered. The capsule and axillary pouch were not significantly capacious or stretched out. There was no posterior lesion or additional instability. The posterior humeral head cartilage lesion was lightly debrided of some loose cartilage and early healing material. The labral tear was thoroughly inspected and the glenoid and labrum was thoroughly prepared to optimize bone tendon healing with various rasps establishing nice roughened bleeding margins of tissue. Starting low, the lasso was used to shuttle a suture tape FiberLink luggage tag type repair suture about the anterior inferior most labrum incorporating some adjacent capsular tissue at about 530 o'clock with the repair anchor then placed slightly more superiorly at about 5:00, which was drilled using the eccentric drill glide to incorporate tissue back onto the glenoid and secured with a push lock anchor with appropriate tension. The repair was then continued similarly shotgun repair suture with the lasso and placing an additional push lock repair anchor at about 4:00 and then third and final labral repair anchor at about 3:00. The repair had nice tissue quality and strength. The remaining anterior superior and SLAP tears were then probed. It was felt that the thin part of the labrum anterior superiorly was probably a normal [place] variant and did not have the same injured tissue appearance as the remainder of the anterior-inferior and SLAP tears so a small recesses left here. The arm is positioned in about 30 degrees external rotation. The anterior 50% of the SLAP tear was displaceable and involve the biceps anchor so repair was done here after repairing the labrum and bony margin with the rasps. Care was taken not to incorporate too much or over tension the superior labrum, and the biceps tendon itself was not sutured, the lasso was used to shuttle the repair suture, drill guide again, and placement of a fourth push lock anchor. This repair stabilize the SLAP tear nicely but did not over constraint the biceps anchor or limit external rotation. Lastly the posterior humeral head lesion was inspected again. There was excellent trajectory for possible additional intervention, given the patient's young age and full-thickness cartilage loss with recent injury decision was made to proceed with microfracture. A 1.1 mm K wire was used to perform multiple perforation into the subchondral bone to allow expression of bleeding bone marrow factors. The shoulder was drained of arthroscopic fluid. All portal sites were copiously irrigated. These incisions were closed using 3-0 Monocryl in a buried fashion and then covered with Mastisol, Steri-Strips, Xeroform, dry gauze, and ABDs. The dressings were covered and secured with Medipore tape. The operative extremity was placed into a sling for immobilization. The patient awoke from anesthesia without complication and was transferred to the recovery room in a stable condition.
[2023-02-18] MEDS: ceFAZolin 2 GM/50 ML BAG IVPB (07:58)
--- NOTE | 2023-02-18 08:11 | W.ANESNERVE ---
Nerve Block Single Injection Procedure Date and Time Date Performed: 02/18/23 Procedure Start: : Location Where Procedure Performed Procedure Location: Day Surgery Unit Reason Performed: Postoperative Analgesia Requesting Provider: Riley Morocho Timeout Performed Timeout Performed: Yes Monitoring Used ECG, Blood Pressure and SpO2 Sterility Sterility: Hand Hygiene, Surgical Cap, Surgical Mask, Sterile Gloves and Chlorhexidine Sedation Given During Procedure Sedation Given (Indicate Dose Given): Versed IV Dose:: 2 mg Patient Mental Status Patient Mental Status: Sedate with meaningful communication Nerve Block 1st Nerve Block: Laterality: Right Block Type: Interscalene Ultrasound Image Saved?: Yes Needle / Catheter Used: 100mm SonoPlex II Local Anesthetic Bolus (Indicate Dose Given): Lidocaine used for local infiltration of skin, Injected in 3-5ml increments after negative blood aspiration, Bupivacaine 0.5% Dose:: 10 and Exparel Dose:: 10 Additives (Indicate Dose Given): Normal Saline Ultrasound: Sterile probe cover and gel used Nerve Stimulator: Supplement to Ultrasound use, Expected parasthesia or motor response elicited (and needle backed away prior to injection. ) and No twitch or parasthesia noted < 0.5 mA Paresthesia: None Procedure Tolerated: No Complications and Patient tolerated well Procedure Outcome: Successful Performed By: Levi Riggins
[2023-02-18] MEDS: Bupivacaine 0.25% Pres-Free 30 ML VIAL (08:34)
[2023-02-18] MEDS: EPINEPHrine 30 MG/30 ML VIAL (08:34)
--- NOTE | 2023-02-18 11:20 | W.ANESPOSTOP ---
Postoperative Evaluation Date, Time and Location Date Performed: 02/18/23 Time Performed: 11:20 Patient Location: Day Surgery Unit Vital Signs Most Recent Imported Vital Signs: Most Recent Vital Signs Temp Pulse Resp BP Pulse Ox 36.4 C L 48 L 16 168/79 H 99 02/18/23 11:09 02/18/23 11:09 02/18/23 11:02/18/23 11:02/18/23 11:09 Pain Score Most Recent Pain Score: Most Recent Pain Score Pain Level 0 02/18/23 11:09 Assessment Mental Status: Awake (Alert & Oriented to Patient Baseline) Airway and Respiratory Function: Patent airway with normal (patient baseline) respiratory exam Cardiovascular Function: Hemodynamically Stable Hydration Status: Adequately Hydrated Nausea & Vomiting: No Nausea or Vomiting Pain: Pt. Denies Any Pain Peripheral Nerve Block: Regional nerve block not resolved at time of post operative discharge
== END 2023-02-18 12:30 | disposition home or self-care (01) ==
PROVIDERS: Visit Provider Student in an Organized Health Care Education/Training Program
PROC: (CPT 29805; principal; 2023-02-18 07:30)
DX: M25.311 Other instability, right shoulder (principal); S43.431A Superior glenoid labrum lesion of right shoulder, initial encounter; M24.011 Loose body in right shoulder; M24.111 Other articular cartilage disorders, right shoulder; X58.XXXA Exposure to other specified factors, initial encounter; M65.811 Other synovitis and tenosynovitis, right shoulder
CPT/HCPCS: 29806; 29823; 76942; J0131; J0690; J1100; J1885; J2001; J2250; J2371; J2405

== ENCOUNTER 2024-06-21 17:00 | Emergency (ER) | payer MEDICAID, SELFPAY ==
[2024-06-21 17:04] VITALS: BP 129/70; PULSE 72; RESP 16; O2SAT 98
--- NOTE | 2024-06-21 17:27 | W.ED.GENAD ---
Discharge Plan Disposition Patient Disposition: Home Condition: Stable Discharge Details Clinical Impression: Foreign body of right cornea Primary Care Provider: Unknown,Unknown ED Provider: Arsenio Huitron Home Meds and New Rx's Prescriptions: No Action No Known Home Meds Discharge Instructions Instructions: Erythromycin (Ophthalmic), Diphtheria and Tetanus Toxoids, and Acellular Pertussis Vaccine, Foreign Body in Eye ED Additional Instructions: You were seen in the emergency department for the corneal foreign body of your right eye. We remove this without issue, it is possible that a rust ring may form if this was metal or not- you may return if you see a rust-ring develop at the site of the foreign body or follow-up with [facility]. Please use the provided erythromycin eye ointment 4 times per day in the affected eye for 5 days. Please watch for signs of infection and return for any, return for any vision loss. We updated your tetanus status today. Discharge Data Discharge Date/Time-TO BE ENTERED AT DEPARTURE: 06/21/24 18:11 HPI General Date/Time Provider Initiated Documentation: 06/21/24 17:07. HPI Narrative: 24 year-old male presents to ED today by POV/ambulating with a chief complaint of FB to R eye at 11 o'clock position on iris border, unknown if metal or dirt with onset around [id number]. Quality described as mild irritation without vision changes, no radiation to discharge, globe rupture, vision loss. Severity is described as mild. Palliating factors include nothing specific. Provoking factors include nothing specific. Events leading up to the incident/Associated Symptoms: Tdap not up-to-date. Patient not anticoagulated. Related Data Home Medications ?Medication ?Instructions ?Recorded ?Confirmed Unknown [No Known Home Meds] 03/01/23 06/21/24 Allergies Allergy/AdvReac Type Severity Reaction Status Date / Time No Known Allergies Allergy Verified 06/21/24 17:05 General Stated Complaint: EyeProblem DELFIN: 4 Review of Systems All systems reviewed & are unremarkable except as noted in HPI and below Exam Narrative Exam Narrative: GENERAL APPEARANCE: Well-nourished, non-toxic, awake and alert, atraumatic, no acute distress. SKIN: Warm, pink, dry, intact, without rashes/lesions/ulcerations. HEAD: Normocephalic, atraumatic, normal hair distribution for gender/age. EYES: Normal conjunctiva, no exudates on lids/lashes, small foreign body visualized the 11 o'clock position of right eye, no rust ring, no globe rupture ENT: Nares patent, no circumoral cyanosis, no facial swelling NECK: Supple, trachea midline, painless cervical ROM. LUNGS/CHEST: LNon-labored respirations, normal A/P diameter, symmetrical expansion, no chest wall deformity HEART (CV/PV): No peripheral edema, no JVD. ABDOMEN: Soft, non-distended, no guarding. MSK: Normal ROM, no swelling/deformity to bilateral UEs or LEs, moving all extremities without weakness, no cyanosis, spine midline without tenderness, normal curvature. NEURO: Mental Status AAOx4 - alert to person, place, time, events No facial droop, no forehead involvement. Motor: No focal weakness - strength 5/5 in bilateral UEs and LEs, proximal and distal, symmetric. Sensory: sensation intact to light touch globally. Gait normal: patient ambulated without ataxia into ED room. PSYCH: euthymic, cooperative, pleasant, appropriate speech Course Vital Signs Vital signs: Vital Signs Pulse 72 06/21/24 17:04 Respiratory Rate 16 06/21/24 17:04 Blood Pressure 129/70 06/21/24 17:04 Pulse Oximetry 98 06/21/24 17:04 Pulse 72 06/21/24 17:04 Respiratory Rate 16 06/21/24 17:04 Blood Pressure 129/70 06/21/24 17:04 Pulse Oximetry 98 06/21/24 17:04 Procedure Foreign Body Removal Date of Procedure: 06/21/24. Provider that performed the procedure: Arsenio Huitron Standard Time Out Performed: No Patient Consented: Verbally Ultrasound: Not used Location of procedure: Right eye Evidence of corneal penetration: No. Foreign body: other (dirt). Procedure performed under: direct visualization with magnification. Post-procedure medication: ophthalmic antibiotic. Patient tolerated procedure: well. Procedure Description/Note: Small ashley of dirt was removed from 11 o'clock position using a 20-gauge needle, there is no evidence of respirating or globe rupture Medical Decision Making This dictation utilizes [id number] dictation software and may contain unedited grammatical errors. 24 year-old male presents to ED today by POV/ambulating with a chief complaint of FB to R eye at 11 o'clock position on iris border, unknown if metal or dirt with onset around [id number]. Quality described as mild irritation without vision changes, no radiation to discharge, globe rupture, vision loss. Severity is described as mild. Palliating factors include nothing specific. Provoking factors include nothing specific. Events leading up to the incident/Associated Symptoms: Tdap not up-to-date. Patients' medical history: Noncontributory. Family and social history: Noncontributory. Pertinent exam findings / vital signs include right corneal abrasion without globe rupture, with a small object in the 11 o'clock position removed with 20-gauge needle, vision grossly intact. Differential / pathologies of concern include corneal abrasion, corneal ulceration, foreign body. Diagnostic studies of: -None. Interventions of: -Tetracaine and fluorescein, removal of foreign body with needle. ED Course/Assessment/Plan: 24-year-old male presents with foreign body sensation to right eye, has a small ashley of dirt or other substance without overt rust ring at the 11 o'clock position of his right eye, this was removed after numbing his eye with tetracaine with a 20-gauge needle without issue, there is no evidence of globe rupture and I did place him on erythromycin ointment, strict return criteria for any vision loss, follow-up with eye doctor for any subacute complications. Findings not consistent with globe rupture, rust ring. Disposition of foreign body right cornea. Patient verbalized understanding of the plan and return to ED criteria and engaged in shared decision making. Medical Records Medical records reviewed: Yes I reviewed the patient's medical records. Quality:SDOH Health Related Social Needs: No Data to Display PFSH All Active Problems (Updated 06/21/24 @ 18:03 by SHANTANU Mayorga) Foreign body of right cornea (Acute) No-show for appointment (Acute) Instability of right shoulder joint (Acute) Medical History (Updated 06/21/24 @ 18:03 by SHANTANU Mayorga) Anterior shoulder dislocation (~01/23/23) Strain of long head of right biceps (02/23/22) Fractured tibia LEFT Surgical History Fracture, Closed Treatment Circumcision Family History (Updated 02/17/23 @ 11:30 by Hong Williamson) Mother No problems noted. Father Family history of drug addiction Social History Smoking/Tobacco Use Status: Current every day Tobacco Type: e-cigarettes Smoking risk assessment performed?: Yes Alcohol Intake: current Alcohol Intake frequency: a few times a month Drug use: Daily Substance use type: marijuana Housing: apartment Current gender identity: male Do you feel safe at home: Yes Do you feel safe in your relationship?: Yes PAWSS Have you Been Recently Intoxicated or Drunk Within the Last 30 days?: No Have you Ever Experienced Previous Episodes of Alcohol Withdrawal?: No Have you ever Experienced Withdrawal Seizures?: No Have you ever Experienced Delirium Tremens(DT)s?: No Have you ever undergone Alcohol Rehabilitation Treatment (i.e, inpt ot outpatient treatment programs)?: No Have you ever Experienced Blackouts?: No Have you ever Combined Alcohol with other Downers within the last 90 days?: No Have you ever Combined Alcohol with any other Substance of Abuse during the last 90 days?: No Positive Blood Alcohol level on Presentation? [PCS.BAL]: No Evidence of Increased Autonomic Activity (i.e. HR>120, tremor, sweating, agitation, nausea)?: No Result: 0
[2024-06-21] MEDS: Fluorescein STRIPS 100/BOX 1 MG OP (17:33)
[2024-06-21] MEDS: Tetracaine 0.5% 4 ML BTL OP (17:33)
[2024-06-21] MEDS: Erythromycin Ophth Oint 3.5 GM TUBE OP (17:34)
[2024-06-21] MEDS: Diph,Pertuss(Acell),Tet Vac/Pf 0.5 ML SYR IM (17:34)
== END 2024-06-21 18:11 | disposition home or self-care (01) ==
LOC: ER 18:04
PROVIDERS: Emergency Provider Physician Assistant
DX: T15.01XA Foreign body in cornea, right eye, initial encounter (principal); X58.XXXA Exposure to other specified factors, initial encounter; Z23 Encounter for immunization
CPT/HCPCS: 65220; 90471; 90715; 99284; 99283